=== PATIENT | female | born 1955 | race African-American/Black ===

== ENCOUNTER 2020-01-21 04:17 | Emergency (ER) | payer OTHER ==
[~2020-01-21] VITALS: Ht 167.6 cm; Wt 108.0 kg
[2020-01-21 06:39] VITALS: BP 172/71
== END 2020-01-21 06:40 | disposition home or self-care (01) ==
LOC: ER 04:17
DX: Z03.818 Encounter for observation for suspected exposure to other biological agents ruled out (principal); R06.09 Other forms of dyspnea; R73.9 Hyperglycemia, unspecified; I10 Essential (primary) hypertension
CPT/HCPCS: 71045; 82962; 87635; 93005; 99285; C9803

== ENCOUNTER 2020-02-19 16:36 | Emergency (ER) | payer OTHER ==
[~2020-02-19] VITALS: Ht 165.1 cm; Wt 90.0 kg
[2020-02-19] MEDS ORDERED: SODIUM CHLORIDE 0.9% 1,000 ML IV ONE (18:30)
[2020-02-19 20:34] VITALS: BP 153/63
== END 2020-02-19 21:34 | disposition home or self-care (01) ==
LOC: ER 16:36
DX: R13.10 Dysphagia, unspecified (principal); I10 Essential (primary) hypertension; Z91.041 Radiographic dye allergy status; Z88.6 Allergy status to analgesic agent; Z88.5 Allergy status to narcotic agent; Z91.011 Allergy to milk products; Z88.8 Allergy status to other drugs, medicaments and biological substances; Z88.9 Allergy status to unspecified drugs, medicaments and biological substances; Z91.018 Allergy to other foods
CPT/HCPCS: 93005; 99283; J7030

== ENCOUNTER 2024-02-26 09:05 | Emergency (ER) | payer OTHER ==
[~2024-02-26] VITALS: Ht 162.6 cm; Wt 91.0 kg
[2024-02-26 09:06] VITALS: O2SAT 99
[2024-02-26 11:03] LABS: BASOPHILS % 0.6 % (0.0-2.0); EOSINOPHILS % 2.2 % (0.0-5.0); HEMATOCRIT. 42.7 % (36.0-48.0); HEMOGLOBIN. 13.7 g/dL (12.0-16.0); LYMPHOCYTES % 19.9 % (20.0-50.0); MEAN CORPUSCULAR HEMOGLOBIN 26.9 pg (28.0-32.0); MEAN CORPUSCULAR VOLUME 83.9 fL (81.0-99.0); MEAN PLATELET VOLUME 7.9 fl (7.4-10.4); NEUTROPHILS % 72.3 % (40.0-76.0); PLATELET 258 x1000/uL (130-400); RED BLOOD CELL COUNT 5.09 mill/uL (4.2-5.4); RED CELL DISTRIBUTION WIDTH 14.9 % (11.6-14.6); WHITE BLOOD COUNT 6.2 x1000/uL (4.5-11.0)
[2024-02-26 11:10] LABS: CHLORIDE 109 mEq/L (98-107); POTASSIUM 3.7 mEq/L (3.5-5.1); SODIUM 143 mEq/L (136-145)
[2024-02-26 11:11] LABS: CALCIUM 9.8 mg/dL (8.7-10.4); CARBON DIOXIDE 27 mEq/L (21-32)
[2024-02-26 11:16] LABS: CREATININE 0.9 mg/dL (0.6-1.0); GLUCOSE 96 mg/dL (70-105); TROPONIN I HIGH SENSITIVITY 19 ng/L (3.0-34); UREA NITROGEN BLOOD 12 mg/dL (9-23)
[2024-02-26 12:31] VITALS: BP 184/74; PULSE 60; RESP 18; TEMP 37.00296; O2SAT 99
== END 2024-02-26 13:42 | disposition left against medical advice (07) ==
LOC: ER 09:05 → CANBEDREQ 11:38 → ER 13:42
DX: R06.02 Shortness of breath (principal); I10 Essential (primary) hypertension; Z88.5 Allergy status to narcotic agent; Z88.8 Allergy status to other drugs, medicaments and biological substances; Z91.041 Radiographic dye allergy status; Z91.010 Allergy to peanuts
CPT/HCPCS: 36415; 71045; 80048; 84484; 85025; 93005; 99285